=== PATIENT | female | born 2005 | race African-American/Black ===

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

== ENCOUNTER 2024-08-05 14:47 | Emergency (ER) | payer OTHER, SELFPAY ==
--- OUTSIDE RECORDS SUMMARY | 2024-08-05 14:50 | XMS REPORT | Continuity of Care Document ---
Author Name Unknown Address [address] [facility] [address] [place] [address] [facility] Address [address] [facility] [address] [place] [address] Care Team Providers Care Inspector Precision Name Role Phone Pcp, Patient Does Not Have A Primary Care Physic puneet CHRISTINE CASTILLO Attending Clinician Unavailable Christine Solis Attending Clinician [phone] Daisy Melo Attending Clinician + DAISY MO Attending Clinician Unavail able GWENDOLYN CHAU Attending Clinician Unavailable VEE MADDOX Attending Clinician Unavailable Pob, Adc Lab Main Attending Clinician UnavailVee Amaya MD Attending Clinician [phone] Doctor Unassigned, [place] Attending Clinician Maddie Lee PA-C Attending Clinician [phone] MADDIE DURAN Attending Clinician Unavailable MARY CLEMENTS Attending Clinician Unavailable VEE MADDOX Admitting Clinician Unavailable Payers Payer Name Policy Type Policy Number Effective Date Expirati on Date Source [facility] [id number] 2024 00:00:00 [place] [employer] [id number] 2023 00:00:00 MEDICAID [place] [id number] 2020 00:00:00 MEDICAID PENDING PENDING 2020 00:00:00 BCBS [facility] - OUT OF STATE [id number] 2018 00:00:00 Problems Condition Name Condition Details Condition Category Status Onset Date Resolution Date Last Treatment Date Treating Clinician Comments Source Need for HPV vaccinatio n Need for HPV vaccinatio n Disease Active 04-06 00:00: 00 [facility] Nexplanon in place Nexplanon in place Disease Active 07-05 00:00: 00 [facility] History of anxiety History of anxiety Disease Active 2 00:00: 00 [facility] History of depression History of depression Disease Active 2019-11 00:00: 00 Overview: Formattin g of this note might be different from the original. Reports on lexapro, dx in 11/2019, stopped taking meds in 12/2019, reports she did not like the way it made her feel [facility] Liveborn , of [place] , born in hospital by vaginal delivery Liveborn infant, of [place] , born in hospital by vaginal delivery Disease Resolve d 7-28 00:00: 00 2021-06-29 00:00:00 2021-06-29 15:59:13 [facility] Anemia, antepartum , third trimester Anemia, antepartum , third trimester Disease Resolve d 7- 00:00: 00 2021-06-29 00:00:00 2021-06-29 15:59:13 [facility] LENNY (acute kidney injury) LENNY (acute kidney injury) Disease Resolve d 7-27 00:00: 00 2021-06-29 00:00:00 2021-06-29 15:59:13 [facility] 37 weeks gestation of 37 weeks gestation of Disease Resolve d 0 7-25 00:00: 00 2021-06-29 00:00:00 2021-06-29 15:59:13 [facility] Severe pre-eclamp dayday in third trimester Severe pre-eclamp dayday in third trimester Disease Resolve d 0 7-25 00:00: 00 2021-06-29 00:00:00 2021-06-29 16:40:38 [facility] Positive GBS test Positive GBS test Disease Resolve d 2-09 00:00: 00 2021-06-29 00:00:00 2021-06-29 15:59:13 [facility] Supervisio n of high-risk of young primigravi da Supervisio n of high-risk of young primigravi da Disease Resolve d 2019-11 2- 00:00: 00 2021-06-29 00:00:00 2021-06-29 16:40:41 [facility] Acetaminop hen overdose, intentiona l self-harm, initial encounter Acetaminop hen overdose, intentiona l self-harm, initial encounter Disease Resolve d 1-10 00:00: 00 2021-06-29 00:00:00 2021-06-29 16:40:46 [facility] UTI in UTI in Disease Resolve d 2019-11 2 00:00: 00 2020-12-13 00:00:00 2020-12-13 09:49:13 [facility] Allergies, Adverse Reactions, Alerts Allergy Name Allergy Type Status Severity Reaction(s) Onset Date Inactive Date Treating Clinician Comments Source NO KNOWN ALLERGIE S Drug Class Active [facility] Social History Social Habit Start Date Stop Date Quantity Comments Source [facility] Alcoholic beverage intake 2024-07-07 00:00:00 2024-07-07 00:00:00 Ex-drinker (finding) [facility] Tobacco use and exposure 2024-04-23 00:00:00 2024-04-23 00:00:00 Smokeless tobacco non-user [facility] History of Social function 2024-04-06 00:00:00 2024-04-06 00:00:00 [facility] Exposure to SARS-CoV-2 (event) 2022-02-11 00:00:00 2022-02-21 10:52:00 Not sure [facility] Alcohol intake 2022-02-21 00:00:00 2022-02-21 00:00:00 Current drinker of alcohol (finding) [facility] Alcohol Comment 2022-02-21 00:00:00 2022-02-21 00:00:00 occasionally [facility] History SDOH Alcohol Frequency 2020-10-25 00:00:00 2020-10-25 00:00:00 99 [facility] History SDOH Alcohol Std Drinks 2020-10-25 00:00:00 2020-10-25 00:00:00 99 [facility] History SDOH Alcohol Binge 2020-10-25 00:00:00 2020-10-25 00:00:00 99 [facility] History SDOH Financial 2019-11-13 00:00:00 2019-11-13 00:00:00 5 [facility] History SDOH Food Worry 2019-11-13 00:00:00 2019-11-13 00:00:00 1 [facility] History SDOH Food Scarcity 2019-11-13 00:00:00 2019-11-13 00:00:00 1 [facility] History SDOH Transport Med 2019-11-13 00:00:00 2019-11-13 00:00:00 2 [facility] History SDOH Transport Non-Med 2019-11-13 00:00:00 2019-11-13 00:00:00 2 [facility] Sex assigned at 2004 00:00:00 2004 00:00:00 [facility] Smoking Status Start Date Stop Date Source Never smoked tobacco [facility] Medications Ordered Medication Name Filled Medication Name Start Date Stop Date Current Medication? Ordering Clinician Indication Dosage Frequency Signature (SIG) Comments Components Source etonogestre L (NEXPLANON) implant 68 mg 07-07 19:30: 00 07-07 19:26 :00 No [id number] 68mg 68 mg, Subdermal, ONCE NOW, 1 dose, On Sat07/07/24 at 1430, Routine, Use approved by: [facility] metroNIDAZO LE 500 mg tablet 04-27 00:00: 00 Yes [id number] 500mg Take 1 tablet by mouth in the morning and 1 tablet in the evening. [facility] metroNIDAZO LE 500 mg tablet 04-09 00:00: 00 Yes [id number] 500mg Take 1 tablet by mouth every 12 (twelve) hours. [facility] Nitrofurant oin&Nit. Macrocryst 100 mg capsule 02-21 12:48: 48 02-21 00:00 :00 No nitrofuran toin monohydrat e/macrocry stals 100 mg capsule [facility] ibuprofen 600 mg tablet 02-21 12:48: 45 02-21 00:00 :00 No ibuprofen 600 mg tablet [facility] hydroCHLORO thiazide 25 mg tablet 02-21 12:48: 39 02-21 00:00 :00 No hydrochlor othiazide 25 mg tablet [facility] ferrous sulfate 325 mg (65 mg iron) tablet 02-21 12:48: 33 02-21 00:00 :00 No FeroSul 325 mg (65 mg iron) tablet [facility] docusate calcium 240 mg capsule 02-21 12:48: 27 02-21 00:00 :00 No docusate calcium 240 mg capsule [facility] acyclovir (ZOVIRAX) 400 mg tablet 02-21 12:48: 20 02-21 00:00 :00 No Zovirax 400 mg tablet Take 1 tablet 3 times a day by oral route for 5 days. [facility] ampicillin 500 mg capsule 02-21 12:48: 14 02-21 00:00 :00 No ampicillin 500 mg capsule [facility] cetirizine 10 mg tablet 02-21 11:16: 40 Yes cetirizine 10 mg tablet Take 1 tablet every day by oral route for 30 days. [facility] chlorhexidi ne 0.12 % mouthwash 02-21 11:16: 40 Yes chlorhexid ine gluconate 0.12 % mouthwash [facility] escitalopra m oxalate 20 mg tablet 02-21 11:16: 40 Yes escitalopr am 20 mg tablet [facility] Immunizations Ordered Immunization Name Filled Immunization Name Date Status Comments Source HPV9 2017-05-23 00:00:00 Completed [facility] Meningococcal Polysaccharide (groups A, C, Y and W-135) conjugate vaccine (MCV4P) 2017-05-23 00:00:00 Completed [facility] TDAP 2017-05-23 00:00:00 Completed [facility] DTAP 2009-07-12 00:00:00 Completed [facility] MMR 2009-07-12 00:00:00 Completed [facility] Polio (IPV/OPV) 2009-07-12 00:00:00 Completed [facility] Dtap/ipv 2008-12-30 00:00:00 Completed [facility] MMR 2008-12-30 00:00:00 Completed [facility] Varicella (varivax)(chicken pox) 2008-12-30 00:00:00 Completed [facility] HEPATITIS A 2008-08-06 00:00:00 Completed [facility] Hep B, Adol or Pedi Dosage 2008-08-06 00:00:00 Completed [facility] Pneumococcal 7 Conjugate, PCV7 (Prevnar7) 2008-08-06 00:00:00 Completed [facility] DTAP 2006-07-11 00:00:00 Completed [facility] HEPATITIS A 2006-07-11 00:00:00 Completed [facility] Pneumococcal 7 Conjugate, PCV7 (Prevnar7) 2006-07-11 00:00:00 Completed [facility] Heamophilus Influenza B 2005-09-17 00:00:00 Completed [facility] MMR 2005-09-17 00:00:00 Completed [facility] Varicella (varivax)(chicken pox) 2005-09-17 00:00:00 Completed [facility] DTAP 2005-06-04 00:00:00 Completed [facility] Heamophilus Influenza B 2005-06-04 00:00:00 Completed [facility] Pneumococcal 7 Conjugate, PCV7 (Prevnar7) 2005-06-04 00:00:00 Completed [facility] Polio (IPV/OPV) 2005-06-04 00:00:00 Completed [facility] Hep B, Dtap, Polio 2005-02-13 00:00:00 Completed [facility] Heamophilus Influenza B 2005-02-13 00:00:00 Completed [facility] Hep B, Dtap, Polio 2004 00:00:00 Completed [facility] Heamophilus Influenza B 2004 00:00:00 Completed [facility] Pneumococcal 7 Conjugate, PCV7 (Prevnar7) 2004 00:00:00 Completed [facility] Hep B, Adol or Pedi Dosage 2004 00:00:00 Completed [facility] Dtap/ipv Unknown Completed [facility] Meningococcal Polysaccharide (groups A, C, Y and W-135) conjugate vaccine (MCV4P) Unknown [facility] TD[facility] Unknown Completed [facility] DTAP Unknown Completed [facility] Hep B, Dtap, Polio Unknown Completed [facility] HEPATITIS A Unknown Completed [facility] Hep B, Adol or Pedi Dosage Unknown Completed [facility] Heamophilus Influenza B Unknown Completed [facility] HPV9 Unknown Completed [facility] MMR Unknown Completed [facility] Pneumococcal 7 Conjugate, PCV7 (Prevnar7) Unknown Completed [facility] Polio (IPV/OPV) Unknown Com[facility] Varicella (varivax)(chicken pox) Unknown Completed [facility] DTAP Unknown Completed [facility] Hep B, Dtap, Polio Unknown Completed [facility] Dtap/ipv Unknown Completed [facility] HEPATITIS A Unknown Completed [facility] Hep B, Adol or Pedi Dosage Unknown Completed [facility] Heamophilus Influenza B Unknown Completed [facility] HPV9 Unknown Completed [facility] Meningococcal Polysaccharide (groups A, C, Y and W-135) conjugate vaccine (MCV4P) Unknown Completed [facility] MMR Unknown Completed [facility] Pneumococcal 7 Conjugate, PCV7 (Prevnar7) Unknown Completed [facility] Polio (IPV/OPV) Unknown Completed [facility] TDAP Unknown Completed [facility] Varicella (varivax)(chicken pox) Unknown Completed [facility] DTAP Unknown Completed [facility] Hep B, Dtap, Polio Unknown [facility] D[facility] Unknown Completed [facility] HEPATITIS A Unknown Completed [facility] Hep B, Adol or Pedi Dosage Unknown Completed [facility] Heamophilus Influenza B Unknown Completed [facility] HPV9 Unknown Completed [facility] Meningococcal Polysaccharide (groups A, C, Y and W-135) conjugate vaccine (MCV4P) Unknown Completed [facility] MMR Unknown Completed [facility] Pneumococcal 7 Conjugate, PCV7 (Prevnar7) Unknown Completed [facility] Polio (IPV/OPV) Unknown Completed [facility] TDAP Unknown Completed [facility] Varicella (varivax)(chicken pox) Unknown Completed [facility] DTAP Unknown Completed [facility] Hep B, Dtap, Polio Unknown [facility] Dtap/[facility]v Unknown Completed [facility] HEPATITIS A Unknown Completed [facility] Hep B, Adol or Pedi Dosage Unknown Completed [facility] Heamophilus Influenza B Unknown Completed [facility] HPV9 Unknown Completed [facility] Meningococcal Polysaccharide (groups A, C, Y and W-135) conjugate vaccine (MCV4P) Unknown Completed [facility] MMR Unknown Completed [facility] Pneumococcal 7 Conjugate, PCV7 (Prevnar7) Unknown Completed [facility] Polio (IPV/OPV) Unknown Completed [facility] TDAP Unknown Completed [facility] Varicella (varivax)(chicken pox) Unknown Completed [facility] DTAP Unknown Completed [facility] Hep B, Dtap, Polio Unknown [facility] Dtap/[facility]v Unknown Completed [facility] HEPATITIS A Unknown Completed [facility] Hep B, Adol or Pedi Dosage Unknown Completed [facility] Heamophilus Influenza B Unknown Completed [facility] HPV9 Unknown Completed [facility] Meningococcal Polysaccharide (groups A, C, Y and W-135) conjugate vaccine (MCV4P) Unknown Completed [facility] MMR Unknown Completed [facility] Pneumococcal 7 Conjugate, PCV7 (Prevnar7) Unknown Completed [facility] Polio (IPV/OPV) Unknown Completed [facility] TDAP Unknown Completed [facility] Varicella (varivax)(chicken pox) Unknown Completed [facility] Vital Signs Vital Name Observation Time Observation Value Comments S jessica Systolic blood pressure 2024-07-07 18:09:00 127 mm[Hg] [facility] Diastolic blood pressure 2024-07-07 18:09:00 82 mm[Hg] [facility] Heart rate 2024-07-07 18:09:00 97 /min [facility] Body temperature 2024-07-07 18:09:00 35.67 Leilani [facility] Respiratory rate 2024-07-07 18:09:00 16 /min [facility] Body height 2024-07-07 18:09:00 154.9 cm [facility] Body weight 2024-07-07 18:09:00 58.656 kg [facility] BMI 2024-07-07 18:09:00 24.43 kg/m2 [facility] Systolic blood pressure 2024-04-23 19:30:00 109 mm[Hg] [facility] Diastolic blood pressure 2024-04-23 19:30:00 75 mm[Hg] [facility] Heart rate 2024-04-23 19:30:00 94 /min [facility] Body temperature 2024-04-23 19:30:00 36.28 Leilani [facility] Respiratory rate 2024-04-23 19:30:00 18 /min [facility] Body height 2024-04-23 19:30:00 154.9 cm [facility] Body weight 2024-04-23 19:30:00 61.916 kg [facility] BMI 2024-04-23 19:30:00 25.79 kg/m2 [facility] Systolic blood pressure 2024-04-06 15:09:00 132 mm[Hg] [facility] Diastolic blood pressure 2024-04-06 15:09:00 87 mm[Hg] [facility] Heart rate 2024-04-06 15:05:00 79 /min [facility] Body temperature 2024-04-06 15:05:00 36.56 Leilani [facility] Respiratory rate 2024-04-06 15:05:00 17 /min [facility] Body height 2024-04-06 15:05:00 154.9 cm [facility] Body weight 2024-04-06 15:05:00 62.007 kg [facility] BMI 2024-04-06 15:05:00 25.83 kg/m2 [facility] Systolic blood pressure 2022-02-21 16:09:00 100 mm[Hg] [facility] Diastolic blood pressure 2022-02-21 16:09:00 62 mm[Hg] [facility] Heart rate 2022-02-21 16:09:00 82 /min [facility] Body temperature 2022-02-21 16:09:00 36.89 Leilani [facility] Respiratory rate 2022-02-21 16:09:00 18 /min [facility] Body height 2022-02-21 16:09:00 154.9 cm [facility] Body weight 2022-02-21 16:09:00 51.619 kg [facility] BMI 2022-02-21 16:09:00 21.50 kg/m2 [facility] Body mass index (BMI) [Percentile] Per age and sex 2022-02-21 16:09:00 55.21 % [facility] Procedures Procedure Date / Time Performed Performing [facility] n Source POCT TEST 2024-07-07 18:54:00 Christine Castillo [facility] GALV ONLY - VAGINAL PATHOGENS BY NUCLEIC ACID TESTING 2024-04-23 20:00:00 Daisy Mo [facility] GARDASIL 9 (HPV 9V) VACCINE 2024-04-06 15:24:13 Daisy Mo [facility] Encounters Start Date/Time End Date/Time Encounter Type Admission Type Attending [facility] Care Facility Care Department Encounter ID Source 2024-07-07 13:00:00 2024-07-07 14:05:06 Outpatient R CHRISTINE CASTILLO [facility] [id number] [facility] 2024-07-07 13:00:00 2024-07-07 14:05:06 Office Visit Christine Castillo [facility] SPECIAL[facility] [id number] [facility] 2024-04-27 00:00:00 2024-04-27 16:52:58 Telephone Daisy Mo [facility] SPECIALIST [facility] [id number] [facility] 2024-04-23 14:30:00 2024-04-23 15:06:14 Outpatient R DAISY MO [facility] [id number] [facility] 2024-04-23 14:30:00 2024-04-23 15:06:14 Office Visit Daisy Mo [facility] SPECIALIST [facility]ILD [facility] [id number] [facility] 2024-04-09 00:00:00 2024-04-09 10:36:37 Telephone Jonathan Christine [facility] [id number] [facility] 2024-04-06 10:15:00 2024-04-06 10:58:36 Outpatient R CHRISTINE CASTILLO [facility] [id number] [facility] 2024-04-06 10:15:00 2024-04-06 10:58:36 Office Visit Christine Castillo [facility] [id number] [facility] 2024-02-12 10:30:00 2024-02-12 10:30:00 Outpatient R GWENDOLYN CHAU [facility] [id number] [facility] 2023-12-18 10:30:00 2023-12-18 10:30:00 Outpatient R GWENDOLYN CHAU [facility] [id number] [facility] 2023-02-21 13:30:00 2023-02-21 13:30:00 Outpatient R VEE MADDOX [facility] [id number] [facility] 2022-02-21 12:30:00 2022-02-21 12:45:00 Chiller Tender Visit Pob, Adc Lab Main Vee Maddox [facility] [id number] [facility] 2022-02-21 10:30:00 2022-02-21 11:44:48 Outpatient R VEE MADDOX [facility] [id number] [facility] 2022-02-21 10:30:00 2022-02-21 11:44:48 Office Visit Vee Maddox [facility] [id number] [id number] [facility] 2022-02-21 10:30:00 2022-02-21 11:44:48 Outpatient R VEE MADDOX [facility] [id number] [facility] 2022-02-21 00:00:00 2022-02-21 00:00:00 Orders Only Doctor Unassigned, [place] [facility] [id number] [id number] [id number] [facility] 2022-01-03 15:00:00 2022-01-03 15:00:00 Outpatient R VEE MADDOX [facility] [id number] [facility] 2021-07-20 13:14:51 2021-07-20 14:02:31 Office [facility] [id number] 350.1.13.10 [id number] 134 [id number] [facility] 2021-07-20 13:00:00 2021-07-20 14:02:31 Outpatient R [facility] [id number] [facility] 2021-07-19 00:00:00 2021-07-19 00:00:00 [facility] [id number] 350.1.13.10 [id number] [id number] [facility] 2021-07-05 15:29:02 2021-07-05 16:33:27 Office Visit Vee Maddox [facility] [id number] 350.1.13.10 [id number] [id number] [facility] 2021-07-05 15:15:00 2021-07-05 16:33:27 Outpatient R VEE MADDOX [facility] [id number] [facility] 2021-07-05 00:00:00 2021-07-05 00:00:00 Orders Only Doctor Unassigned, [place] [facility] [id number] 350.1.13.10 4.2.7.2.686 [id number] [facility] 2021-06-29 15:45:00 2021-06-29 16:26:34 Outpatient R VEE MADDOX [facility] [id number] [facility] 2021-06-29 15:42:12 2021-06-29 16:26:34 Routine Visit Vee Maddox [facility] [id number] [id number] [id number] [id number] 134 [id number] [facility] 2021-06-05 14:30:00 2021-06-05 14:47:51 Outpatient R VEE MADDOX [facility] [id number] [facility] 2021-05-28 20:08:00 2021-05-31 19:35:00 Inpatient X VEE MADDOX [facility] [id number] [facility] 2021-05-29 14:15:00 2021-05-29 14:15:00 Outpatient VEE SUGGS [facility] [id number] [facility] 2021-05-22 15:30:00 2021-05-22 16:52:36 Outpatient MADDIE SERNA [facility] [id number] [facility] 2021-05-17 13:45:00 2021-05-17 13:45:00 Outpatient MADDIE SERNA [facility] [id number] [facility] 2021-05-08 14:15:00 2021-05-08 15:16:58 Outpatient VEE SUGGS [facility] [id number] [facility] 2021-04-24 15:00:00 2021-04-24 15:25:59 Outpatient MADDIE SERNA [facility] [id number] [facility] 2021-04-10 14:00:00 2021-04-10 14:00:00 Outpatient NITIN [facility] [id number] [facility] 2021-04-10 08:15:00 2021-04-10 09:57:24 Outpatient VEE SUGGS [facility] [id number] [facility] 2021-04-10 08:00:00 2021-04-10 08:00:00 Outpatient VEE SUGGS [facility] [id number] [facility] 2021-03-13 14:45:00 2021-03-13 15:31:51 Outpatient R MADDIE DURAN [facility] [id number] [facility] 2021-02-17 15:00:00 2021-02-17 15:41:30 Outpatient P MARY CLEMENTS [facility] [id number] [facility] 2021-02-09 16:15:00 2021-02-09 16:15:00 Outpatient R MADDIE DURAN [facility] [id number] [facility] 2021-02-09 13:30:00 2021-02-09 13:30:00 Outpatient R VEE MADDOX [facility] [id number] [facility] 2021-01-27 14:00:00 2021-01-27 14:00:00 Outpatient R [facility] [id number] [facility] 2021-01-10 09:30:00 2021-01-10 09:30:00 Outpatient R MADDIE DURAN [facility] [id number] [facility] 2020-12-20 14:00:00 2020-12-20 14:00:00 Outpatient R DAISY MO [facility] [id number] [facility] 2020-12-13 08:30:00 2020-12-13 09:39:17 Outpatient R EVE MADDOX [facility] [id number] [facility] 2020-12-06 11:15:00 2020-12-06 11:15:00 Outpatient P [facility] [id number] [facility] 2020-12-06 08:00:00 2020-12-06 08:00:00 Outpatient P [facility] [id number] [facility] 2020-11-22 15:15:00 2020-11-22 15:15:00 Outpatient R DAISY MO [facility] [id number] [facility] 2020-10-25 10:00:00 2020-10-25 10:00:00 Outpatient R DAISY MO [facility] [id number] [facility] 2020-02-18 00:00:00 2020-02-18 00:00:00 Orders Only Doctor Unassigned, [place] [facility] [id number] [id number] [id number] [id number] Results Test Description Test Time Test Comments Results Result Co mments Source [facility] Notes Date/Time Note Provider Source 2024-04-27 16:50:52 Pt called and notified she verbalized understanding Please notify the patient her labs are indicative of BV, meds have been sent to her pharmacy on file. Please have her complete the entire course as prescribed. AALIYAH Alarcon 04/27/2024 4:52 PM [facility] 2024-04-09 10:35:24 Called patient, notified positive for BV. Educated patient on antibiotics, daily probiotics, and BV prevention measures. Pt verbalized understanding. ADRIENNE Mcadams RN 04/09/2024 10:35 AM Adrienne Mcadams RN [facility] 2024-04-09 09:32:32 Attempted to call patient, no answer, left vm. Barbara Holley LVN [facility] 2024-04-09 08:42:25 Please make pt aware that she is positive for BV. Rx for metronidazole 500mg BID x 7 days sent to pharmacy. Advise to avoid scented soaps/detergents/pads/tampons . RTC in 2 weeks if symptoms persist or worsen. 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 Other testing is negative. T [facility]
[2024-08-05 15:39] LABS: SARS-CoV-2 Antigen CONTROL BLUE LINE VIS/BG OK; SARS-CoV-2 Antigen Rapid Res Negative (Negative)
--- NOTE | 2024-08-05 15:44 | EDPHYS ---
Physician Documentation [facility] Name: Nicol Perea Age: 18 yrs Sex: Female : 2005 Arrival Date: 08/05/2024 Time: 14:47 Bed 12 Private MD: ED Physician Nigel Matt HPI: 08/05 15:01 This 18 yrs old Black Female presents to ER via Unassigned with complaints of flu sb4 symptoms. 15:01 sore throat, fever, chills, malaise, and nausea since yesterday. took dayquil with some sb4 relief. denies any sick contacts. no chest pain, shortness of breath, cough. Historical: - Allergies: 15:02 No Known Allergies; ll1 - Home Meds: 15:02 None [Active]; ll1 - PMHx: 15:02 None; ll1 - PSHx: 15:02 None; ll1 - Immunization history:: Adult Immunizations up to date. - Infectious Disease History:: Denies. - Social history:: Smoking status: Reported history of juuling and/or vaping. ROS: 15:01 Respiratory: Negative for shortness of breath, cough, wheezing, and pleuritic chest sb4 pain, 15:01 Constitutional: Positive for chills, fever, malaise, 15:01 ENT: Positive for sore throat, 15:01 All other systems are negative, Exam: 15:01 Constitutional: This is a well developed, well nourished patient who is awake, alert, sb4 and in no acute distress. Head/Face: Normocephalic, atraumatic. Eyes: Extra-ocular motions intact. Periorbital areas with no swelling, redness, or edema. Cardiovascular: Regular rate and rhythm with a normal S1 and S2. Respiratory: Lungs have equal breath sounds bilaterally, clear to auscultation and percussion. No rales, rhonchi or wheezes noted. No increased work of breathing, no retractions or nasal flaring. Abdomen/GI: Soft, non-tender, no distension. Skin: Warm, dry with normal turgor. Normal color with no rashes, no lesions, and no evidence of cellulitis. 15:01 ENT: Posterior pharynx: Tonsils: are normal in appearance, cobblestoning, Vital Signs: 15:02 BP 119 / 87; Pulse 92; Resp 17; Temp 98.2; Pulse Ox 100% ; Weight 57.15 kg; Height 5 ll1 ft. 1 in. ; Pain 5/10; 15:50 BP 117 / 81; Pulse 79; Resp 17; Temp 98.2(O); Pulse Ox 99% ; rs5 15:02 Body Mass Index 23.81 (57.15 kg, 154.94 cm) - Percentile 70.6 % ll1 15:02 Pain Scale: Adult ll1 MDM: 14:51 Patient medically screened. sb4 15:42 Data reviewed: vital signs, nurses notes, lab test result(s), and as a result, I will sb4 discharge patient. Counseling: I had a detailed discussion with the patient and/or guardian regarding the historical points, exam findings, and any diagnostic results supporting the discharge/admit diagnosis, lab results, to return to the emergency department if symptoms worsen or persist or if there are any questions or concerns that arise at home. 08/05 14:59 Order name: Strep sb4 08/05 14:59 Order name: SARS RAPID; Complete Time: 15:40 sb4 08/05 14:59 Order name: Flu; Complete Time: 15:40 sb4 08/05 15:43 Order name: Throat Culture EDMS Administered Medications: No medications were administered Disposition Summary: 08/05/24 15:43 Discharge Ordered Notes: Location: Home sb4 Problem: new sb4 Symptoms: are unchanged sb4 Condition: Stable sb4 Diagnosis - Viral infection, unspecified sb4 Followup: sb4 - With: Private Physician - When: As needed - Reason: Recheck today's complaints, Re-evaluation by your physician Discharge Instructions: - Discharge Summary Sheet sb4 - Viral Illness, Adult sb4 Forms: - Work release form sb4 - Patient Portal Instructions sb4 - Leadership Thank You Letter sb4 Signatures: Dispatcher [employer] Kenan Ibarra, RN RN ll1 Juany Beaulieu PA-C PA-C sb4 Javy Ortiz RN RN rs5
--- NOTE | 2024-08-05 15:44 | ER ---
Nurse's Notes [facility] Name: Nicol Perea Age: 18 yrs Sex: Female : 2005 Arrival Date: 08/05/2024 Time: 14:47 Bed 12 Private MD: Diagnosis: Viral infection, unspecified Presentation: 08/05 15:02 Chief complaint: Patient states: Sore throat, chills, RUCKER, nausea, fatigue for 3 days. ll1 Coronavirus screen: Client denies travel out of the [place] in the last 14 days. chills, diarrhea, fatigue, headache, nausea, Client presents with at least one sign or symptom that may indicate coronavirus-19. Standard/surgical mask placed on the client. Ebola Screen: Patient denies travel to an Ebola-affected area in the 21 days before illness onset. Initial Sepsis Screen: Does the patient meet any 2 criteria? No. Patient's initial sepsis screen is negative. Does the patient have a suspected source of infection? No. Patient's initial sepsis screen is negative. Risk Assessment: Do you want to hurt yourself or someone else? Patient reports no desire to harm self or others. Onset of symptoms was August 03, 2024. 15:02 Method Of Arrival: Ambulatory ll1 15:02 Acuity: LILIANE 4 ll1 Triage Assessment: 14:51 General: Appears in no apparent distress. uncomfortable, Behavior is calm, cooperative. rs5 Historical: - Allergies: 15:02 No Known Allergies; ll1 - Home Meds: 15:02 None [Active]; ll1 - PMHx: 15:02 None; ll1 - PSHx: 15:02 None; ll1 - Immunization history:: Adult Immunizations up to date. - Infectious Disease History:: Denies. - Social history:: Smoking status: Reported history of juuling and/or vaping. Screenin:03 [facility] ED Fall Risk Assessment (Adult) History of falling in the last 3 months, rs5 including since admission No falls in past 3 months (0 pts) Confusion or Disorientation No (0 pts) Intoxicated or Sedated No (0 pts) Impaired Gait No (0 pts) Mobility Assist Device Used No (0 pt) Altered Elimination No (0 pt) Score/Fall Risk Level 0 - 2 = Low Risk Oriented to surroundings, Maintained a safe environment. Abuse screen: Denies threats or abuse. Nutritional screening: No deficits noted. Tuberculosis screening: No symptoms or risk factors identified. Assessment: 14:51 General: Appears in no apparent distress. uncomfortable, Behavior is calm, cooperative. rs5 Pain: Complains of pain in head Pain currently is 4 out of 10 on a pain scale. Quality of pain is described as aching, Is continuous. Neuro: Level of Consciousness is awake, alert, obeys commands, Oriented to person, place, time, situation. Cardiovascular: Patient's skin is warm and dry. Respiratory: Reports cough that is Airway is patent Respiratory effort is even, unlabored, Respiratory pattern is regular, symmetrical, Breath sounds are clear bilaterally. GI: Abdomen is round non-distended, Abd is soft and non tender X 4 quads. : No signs and/or symptoms were reported regarding the genitourinary system. EENT: Throat slight redness noted to back of throat. Reports sore throat. 14:51 Derm: Skin is intact, Skin is pink, warm \T\ dry. Musculoskeletal: Range of motion: rs5 intact in all extremities, Reports generalized weakness. 15:50 Reassessment: Patient and/or family updated on plan of care and expected duration. Pain rs5 level reassessed. Patient is alert, oriented x 3, equal unlabored respirations, skin warm/dry/pink. Vital Signs: 15:02 BP 119 / 87; Pulse 92; Resp 17; Temp 98.2; Pulse Ox 100% ; Weight 57.15 kg; Height 5 ll1 ft. 1 in. ; Pain 5/10; 15:50 BP 117 / 81; Pulse 79; Resp 17; Temp 98.2(O); Pulse Ox 99% ; rs5 15:02 Body Mass Index 23.81 (57.15 kg, 154.94 cm) - Percentile 70.6 % ll1 15:02 Pain Scale: Adult ll1 ED Course: 14:50 Patient arrived in ED. ra3 14:50 Juany Beaulieu PA-C is PHCP. sb4 14:50 Nigel Matt MD is Attending Physician. sb4 14:56 Arm band placed on Patient placed in an exam room, on a stretcher. ll1 15:03 Triage completed. ll1 15:03 Patient has correct armband on for positive identification. Placed in gown. Bed in low rs5 position. Call light in reach. Side rails up X2. 15:03 No provider procedures requiring assistance completed. rs5 15:09 Flu Sent. me1 15:09 SARS RAPID Sent. me1 15:09 Strep Sent. me1 15:09 COVID swab sent to lab. Flu and/or RSV swab sent to lab. Strep swab sent to lab. me1 15:17 Javy Ortiz, RN is Primary Nurse. rs5 15:50 Provided Education on: discharge instructions . rs5 15:53 IV discontinued, intact, bleeding controlled, No redness/swelling at site. Pressure rs5 dressing applied. Administered Medications: No medications were administered Medication: 14:52 VIS not applicable for this client. rs5 Outcome: 15:43 Discharge ordered by MD. sb4 15:53 Discharged to home ambulatory, rs5 15:53 Condition: stable rs5 15:53 Discharge instructions given to patient, family, Instructed on discharge instructions, follow up and referral plans. Demonstrated understanding of instructions, follow-up care, 15:54 Patient left the ED. rs5 Signatures: Kenan Kim, RN RN ll1 Juany Beaulieu PALeslieC PA-C sb4 Javy Ortiz, RN RN rs5 Sandy Harris RN RN pr1 [place] ra3 Corrections: (The following items were deleted from the chart) 16:00 15:59 Reassessment: Patient and/or family updated on plan of care and expected rs5 duration. Pain level reassessed. Patient is alert, oriented x 3, equal unlabored respirations, skin warm/dry/pink. rs5 16:01 14:50 Provided Education on: discharge instructions . rs5 rs5
[2024-08-06 06:03] VITALS: BP 119/87; TEMP 98.2; O2SAT 100
== END 2024-08-05 15:54 | disposition home or self-care (01) ==
LOC: ER 14:47
DX: B34.9 Viral infection, unspecified (principal); F17.290 Nicotine dependence, other tobacco product, uncomplicated; Z11.52 Encounter for screening for COVID-19
CPT/HCPCS: 36415; 87070; 87081; 87804; 87811; 99283

== ENCOUNTER 2025-01-26 16:41 | Emergency (ER) | payer SELFPAY ==
--- OUTSIDE RECORDS SUMMARY | 2025-01-26 16:45 | XMS REPORT | Continuity of Care Document ---
Author Name Unknown Address [address] [place] [address] [facility] Address [address] [place] [address] Care Team Providers Care Tufter Name Role Phone Pcp, Patient Does Not Have A Primary Care Physic puneet CHRISTINE CASTILLO Attending Clinician Unavailable Christine Solis Attending Clinician [phone] Daisy Melo Attending Clinician + DAISY MO Attending Clinician Unavail able GWENDOLYN CHAU Attending Clinician Unavailable VEE MADDOX Attending Clinician Unavailable Pob, Adc Lab Main Attending Clinician UnavailVee Amaya MD Attending Clinician [phone] Doctor Unassigned, Mcgregor Attending Clinician Maddie Lee PA-C Attending Clinician [phone] MADDIE DURAN Attending Clinician Unavailable MARY CLEMENTS Attending Clinician Unavailable VEE MADDOX Admitting Clinician Unavailable Payers Payer Name Policy Type Policy Number Effective Date Expirati on Date Source [facility] [id number] 2024 00:00:00 [place] [employer] [id number] 2023 00:00:00 [place] [id number] 2020 00:00:00 MEDICAID PENDING PENDING 2020 00:00:00 BCBS [facility] OUT OF STATE [id number] 2018 00:00:00 Problems Condition Name Condition Details Condition Category Status Onset Date Resolution Date Last Treatment Date Treating Clinician Comments Source Need for HPV vaccinatio n Need for HPV vaccinatio n Disease Active 6 00:00: 00 [facility] Nexplanon in place Nexplanon in place Disease Active 07-05 00:00: 00 [facility] History of anxiety History of anxiety Disease Active 2 00:00: 00 [facility] History of depression History of depression Disease Active 2019-11 00:00: 00 Overview: Formattin g of this note might be different from the original. Reports on lexapro, dx in 11/2019, stopped taking meds in 12/2019, reports she did not like the way it made her feel [facility] Liveborn infant, of c[place] , born in hospital by vaginal delivery Liveborn infant, of [place] , born in hospital by vaginal delivery Disease Resolve d 7-28 00:00: 00 2021-06-29 00:00:00 2021-06-29 15:59:13 [facility] Anemia, antepartum , third trimester Anemia, antepartum , third trimester Disease Resolve d 7-27 00:00: 00 2021-06-29 00:00:00 2021-06-29 15:59:13 [facility] LENNY (acute kidney injury) LENNY (acute kidney injury) Disease Resolve d 0 7-27 00:00: 00 2021-06-29 00:00:00 2021-06-29 15:59:13 [facility] 37 weeks gestation of 37 weeks gestation of Disease Resolve d 2020-0 7-25 00:00: 00 2021-06-29 00:00:00 2021-06-29 15:59:13 [facility] Severe pre-eclamp dayday in third trimester Severe pre-eclamp dayday in third trimester Disease Resolve d 2020-0 7-25 00:00: 00 2021-06-29 00:00:00 2021-06-29 16:40:38 [facility] Positive GBS test Positive GBS test Disease Resolve d 2-09 00:00: 00 2021-06-29 00:00:00 2021-06-29 15:59:13 [facility] Supervisio n of high-risk of young primigravi da Supervisio n of high-risk of young primigravi da Disease Resolve d 2019-11 2- 00:00: 00 2021-06-29 00:00:00 2021-06-29 16:40:41 [facility] Acetaminop hen overdose, intentiona l self-harm, initial encounter Acetaminop hen overdose, intentiona l self-harm, initial encounter Disease Resolve d 1-10 00:00: 00 2021-06-29 00:00:00 2021-06-29 16:40:46 [facility] UTI in UTI in Disease Resolve d 2019-11 00:00: 00 2020-12-13 00:00:00 2020-12-13 09:49:13 [facility] Allergies, Adverse Reactions, Alerts Allergy Name Allergy Type Status Severity Reaction(s) Onset Date Inactive Date Treating Clinician Comments Source NO KNOWN ALLERGIE S Drug Class Active [facility] Social History Social Habit Start Date Stop Date Quantity Comments Source [facility] beverage intake 2024-07-07 00:00:00 2024-07-07 00:00:00 Ex-drinker (finding) [facility] Tobacco use and exposure 2024-04-23 00:00:00 2024-04-23 00:00:00 Smokeless tobacco non-user [facility] History of Social function 2024-04-06 00:00:00 2024-04-06 00:00:00 [facility] Exposure to SARS-CoV-2 (event) 2022-02-11 00:00:00 2022-02-21 10:52:00 Not sure [facility] Alcohol intake 2022-02-21 00:00:00 2022-02-21 00:00:00 Current drinker of alcohol (finding) [facility] Alcohol Comment 2022-02-21 00:00:00 2022-02-21 00:00:00 occasionally [facility] History SDOH Alcohol Frequency 2020-10-25 00:00:00 2020-10-25 00:00:00 99 [facility] History SDOH Alcohol Std Drinks 2020-10-25 00:00:00 2020-10-25 00:00:00 99 [facility] History SDOH Alcohol Binge 2020-10-25 00:00:00 2020-10-25 00:00:00 99 [facility] History SDOH Financial 2019-11-13 00:00:00 2019-11-13 00:00:00 5 [facility] History SDOH Food Worry 2019-11-13 00:00:00 2019-11-13 00:00:00 1 [facility] History SDOH Food Scarcity 2019-11-13 00:00:00 2019-11-13 00:00:00 1 [facility] History SDOH Transport Med 2019-11-13 00:00:00 2019-11-13 00:00:00 2 [facility] History SDOH Transport Non-Med 2019-11-13 00:00:00 2019-11-13 00:00:00 2 [facility] Sex assigned at 2004 00:00:00 2004 00:00:00 [facility] Smoking Status Start Date Stop Date Source Never smoked tobacco [facility] Medications Ordered Medication Name Filled Medication Name Start Date Stop Date Current Medication? Ordering Clinician Indication Dosage Frequency Signature (SIG) Comments Components Source etonogestre L (NEXPLANON) implant 68 mg 07-07 19:30: 00 07-07 19:26 :00 No [id number] 68mg 68 mg, Subdermal, ONCE NOW, 1 dose, On Sat07/07/24 at 1430, Routine, Use approved by: DETECTIVE PRECINCT [facility] metroNIDAZO LE 500 mg tablet 04-27 00:00: 00 Yes [id number] 500mg Take 1 tablet by mouth in the morning and 1 tablet in the evening. [facility] metroNIDAZO LE 500 mg tablet 04-09 00:00: 00 Yes [id number] 500mg Take 1 tablet by mouth every 12 (twelve) hours. [facility] Nitrofurant oin&Nit. Macrocryst 100 mg capsule 02-21 12:48: 48 02-21 00:00 :00 No nitrofuran toin monohydrat e/macrocry stals 100 mg capsule [facility] ibuprofen 600 mg tablet 02-21 12:48: 45 02-21 00:00 :00 No ibuprofen 600 mg tablet [facility] hydroCHLORO thiazide 25 mg tablet 02-21 12:48: 39 02-21 00:00 :00 No hydrochlor othiazide 25 mg tablet [facility] ferrous sulfate 325 mg (65 mg iron) tablet 02-21 12:48: 33 02-21 00:00 :00 No FeroSul 325 mg (65 mg iron) tablet [facility] docusate calcium 240 mg capsule 02-21 12:48: 27 02-21 00:00 :00 No docusate calcium 240 mg capsule [facility] acyclovir (ZOVIRAX) 400 mg tablet 02-21 12:48: 20 02-21 00:00 :00 No Zovirax 400 mg tablet Take 1 tablet 3 times a day by oral route for 5 days. [facility] ampicillin 500 mg capsule 02-21 12:48: 14 02-21 00:00 :00 No ampicillin 500 mg capsule [facility] cetirizine 10 mg tablet 02-21 11:16: 40 Yes cetirizine 10 mg tablet Take 1 tablet every day by oral route for 30 days. [facility] chlorhexidi ne 0.12 % mouthwash 02-21 11:16: 40 Yes chlorhexid ine gluconate 0.12 % mouthwash [facility] escitalopra m oxalate 20 mg tablet 02-21 11:16: 40 Yes escitalopr am 20 mg tablet [facility] Immunizations Ordered Immunization Name Filled Immunization Name Date Status Comments Source HPV9 2017-05-23 00:00:00 Completed [facility] Meningococcal Polysaccharide (groups A, C, Y and W-135) conjugate vaccine (MCV4P) 2017-05-23 00:00:00 Completed [facility] TDAP 2017-05-23 00:00:00 Completed [facility] DTAP 2009-07-12 00:00:00 Completed [facility] MMR 2009-07-12 00:00:00 Completed [facility] Polio (IPV/OPV) 2009-07-12 00:00:00 Completed [facility] Dtap/ipv 2008-12-30 00:00:00 Completed [facility] MMR 2008-12-30 00:00:00 Completed [facility] Varicella (varivax)(chicken pox) 2008-12-30 00:00:00 Completed [facility] HEPATITIS A 2008-08-06 00:00:00 Completed [facility] Hep B, Adol or Pedi Dosage 2008-08-06 00:00:00 Completed [facility] Pneumococcal 7 Conjugate, PCV7 (Prevnar7) 2008-08-06 00:00:00 Completed [facility] DTAP 2006-07-11 00:00:00 Completed [facility] HEPATITIS A 2006-07-11 00:00:00 Completed [facility] Pneumococcal 7 Conjugate, PCV7 (Prevnar7) 2006-07-11 00:00:00 Completed [facility] Heamophilus Influenza B 2005-09-17 00:00:00 Completed [facility] MMR 2005-09-17 00:00:00 Completed [facility] Varicella (varivax)(chicken pox) 2005-09-17 00:00:00 Completed [facility] DTAP 2005-06-04 00:00:00 Completed [facility] Heamophilus Influenza B 2005-06-04 00:00:00 Completed [facility] Pneumococcal 7 Conjugate, PCV7 (Prevnar7) 2005-06-04 00:00:00 Completed [facility] Polio (IPV/OPV) 2005-06-04 00:00:00 Completed [facility] Hep B, Dtap, Polio 2005-02-13 00:00:00 Completed [facility] Heamophilus Influenza B 2005-02-13 00:00:00 Completed [facility] Hep B, Dtap, Polio 2004 00:00:00 Completed [facility] Heamophilus Influenza B 2004 00:00:00 Completed [facility] Pneumococcal 7 Conjugate, PCV7 (Prevnar7) 2004 00:00:00 Completed [facility] Hep B, Adol or Pedi Dosage 2004 00:00:00 Completed [facility] Dtap/ipv Unknown Completed [facility] Meningococcal Polysaccharide (groups A, C, Y and W-135) conjugate vaccine (MCV4P) Unknown Completed [facility] TDAP Unknown Completed [facility] DTAP Unknown Completed [facility] Hep B, Dtap, Polio Unknown Completed [facility] HEPATITIS A Unknown Completed [facility] Hep B, Adol or Pedi Dosage Unknown Completed [facility] Heamophilus Influenza B Unknown Completed [facility] HPV9 Unknown Completed [facility] MMR Unknown Completed [facility] Pneumococcal 7 Conjugate, PCV7 (Prevnar7) Unknown Completed [facility] Polio (IPV/OPV) Unknown Completed [facility] Varicella (varivax)(chicken pox) Unknown Completed [facility] DTAP Unknown Completed [facility] Hep B, Dtap, Polio Unknown Completed [facility] Dtap/ipv Unknown Completed [facility] HEPATITIS A Unknown Completed [facility] Hep B, Adol or Pedi Dosage Unknown Completed [facility] Heamophilus Influenza B Unknown Completed [facility] HPV9 Unknown Completed [facility] Meningococcal Polysaccharide (groups A, C, Y and W-135) conjugate vaccine (MCV4P) Unknown Completed [facility] MMR Unknown Completed [facility] Pneumococcal 7 Conjugate, PCV7 (Prevnar7) Unknown Completed [facility] Polio (IPV/OPV) Unknown Completed [facility] TDAP Unknown Completed [facility] Varicella (varivax)(chicken pox) Unknown Completed [facility] DTAP Unknown Completed [facility] Hep B, Dtap, Polio Unknown [facility] Dtap[facility] Unknown Completed [facility] HEPATITIS A Unknown Completed [facility] Hep B, Adol or Pedi Dosage Unknown Completed [facility] Heamophilus Influenza B Unknown Completed [facility] HPV9 Unknown Completed [facility] Meningococcal Polysaccharide (groups A, C, Y and W-135) conjugate vaccine (MCV4P) Unknown Completed [facility] MMR Unknown Completed [facility] Pneumococcal 7 Conjugate, PCV7 (Prevnar7) Unknown Completed [facility] Polio (IPV/OPV) Unknown Completed [facility] TDAP Unknown Completed [facility] Varicella (varivax)(chicken pox) Unknown Completed [facility] DTAP Unknown Completed [facility] Hep B, Dtap, Polio Unknown [facility] Dtap/[facility]v Unknown Completed [facility] HEPATITIS A Unknown [facility] Hep B, Adol or Pedi Dosage Unknown Completed [facility] Heamophilus Influenza B Unknown Completed [facility] HPV9 Unknown Completed [facility] Meningococcal Polysaccharide (groups A, C, Y and W-135) conjugate vaccine (MCV4P) Unknown Completed [facility] MMR Unknown Completed [facility] Pneumococcal 7 Conjugate, PCV7 (Prevnar7) Unknown Completed [facility] Polio (IPV/OPV) Unknown Completed [facility] TDAP Unknown Completed [facility] Varicella (varivax)(chicken pox) Unknown Completed [facility] DTAP Unknown Completed [facility] Hep B, Dtap, Polio Unknown [facility] Dtap/ipv Unknown Completed [facility] HEPATITIS A Unknown Completed [facility] Hep B, Adol or Pedi Dosage Unknown Completed [facility] Heamophilus Influenza B Unknown Completed [facility] HPV9 Unknown Completed [facility] Meningococcal Polysaccharide (groups A, C, Y and W-135) conjugate vaccine (MCV4P) Unknown Completed [facility] MMR Unknown Completed [facility] Pneumococcal 7 Conjugate, PCV7 (Prevnar7) Unknown Completed [facility] Polio (IPV/OPV) Unknown Completed [facility] TDAP Unknown Completed [facility] Varicella (varivax)(chicken pox) Unknown Completed [facility] Vital Signs Vital Name Observation Time Observation Value Comments S jessica Systolic blood pressure 2024-07-07 18:09:00 127 mm[Hg] [facility] Diastolic blood pressure 2024-07-07 18:09:00 82 mm[Hg] [facility] Heart rate 2024-07-07 18:09:00 97 /min [facility] Body temperature 2024-07-07 18:09:00 35.67 Leilani [facility] Respiratory rate 2024-07-07 18:09:00 16 /min [facility] Body height 2024-07-07 18:09:00 154.9 cm [facility] Body weight 2024-07-07 18:09:00 58.656 kg [facility] BMI 2024-07-07 18:09:00 24.43 kg/m2 [facility] Systolic blood pressure 2024-04-23 19:30:00 109 mm[Hg] [facility] Diastolic blood pressure 2024-04-23 19:30:00 75 mm[Hg] [facility] Heart rate 2024-04-23 19:30:00 94 /min [facility] Body temperature 2024-04-23 19:30:00 36.28 Leilani [facility] Respiratory rate 2024-04-23 19:30:00 18 /min [facility] Body height 2024-04-23 19:30:00 154.9 cm [facility] Body weight 2024-04-23 19:30:00 61.916 kg [facility] BMI 2024-04-23 19:30:00 25.79 kg/m2 [facility] Systolic blood pressure 2024-04-06 15:09:00 132 mm[Hg] [facility] Diastolic blood pressure 2024-04-06 15:09:00 87 mm[Hg] [facility] Heart rate 2024-04-06 15:05:00 79 /min [facility] Body temperature 2024-04-06 15:05:00 36.56 Leilani [facility] Respiratory rate 2024-04-06 15:05:00 17 /min [facility] Body height 2024-04-06 15:05:00 154.9 cm [facility] Body weight 2024-04-06 15:05:00 62.007 kg [facility] BMI 2024-04-06 15:05:00 25.83 kg/m2 [facility] Systolic blood pressure 2022-02-21 16:09:00 100 mm[Hg] [facility] Diastolic blood pressure 2022-02-21 16:09:00 62 mm[Hg] [facility] Heart rate 2022-02-21 16:09:00 82 [facility] Body temperature 2022-02-21 16:09:00 36.89 Leilani [facility] Respiratory rate 2022-02-21 16:09:00 18 /min [facility] Body height 2022-02-21 16:09:00 154.9 cm [facility] Body weight 2022-02-21 16:09:00 51.619 kg [facility] BMI 2022-02-21 16:09:00 21.50 kg/m2 [facility] Body mass index (BMI) [Percentile] Per age and sex 2022-02-21 16:09:00 55.21 % [facility] Procedures Procedure Date / Time Performed Performing Clinicia n Source POCT TEST 2024-07-07 18:54:00 Christine Castillo [facility] GALV ONLY - VAGINAL PATHOGENS BY NUCLEIC ACID TESTING 2024-04-23 20:00:00 Daisy Mo [facility] GARDASIL 9 (HPV 9V) VACCINE 2024-04-06 15:24:13 Daisy Mo [facility] Encounters Start Date/Time End Date/Time Encounter Type Admission Type Attending [facility] Care Facility Care Department Encounter ID Source 2024-07-07 13:00:00 2024-07-07 14:05:06 Outpatient R CHRISTINE CASTILLO [facility] [id number] [facility] 2024-07-07 13:00:00 2024-07-07 14:05:06 Office Visit Christine Castillo [facility] DETECTIVE [facility] & CHILD [facility] [id number] [facility] 2024-04-27 00:00:00 2024-04-27 16:52:58 Telephone Daisy Mo [facility] DETECTIVE [facility] & CHILD [facility] [id number] [facility] 2024-04-23 14:30:00 2024-04-23 15:06:14 Outpatient R DAISY MO [facility] [id number] [facility] 2024-04-23 14:30:00 2024-04-23 15:06:14 Office Visit Daisy Mo [facility] DETECTIVE [facility] CHILD [facility] [id number] [id number] [facility] 2024-04-09 00:00:00 2024-04-09 10:36:37 Telephone Christine Castillo [facility] DETECTIVE [facility] CHILD [facility] [id number] [facility] 2024-04-06 10:15:00 2024-04-06 10:58:36 Outpatient R CHRISTINE CASTILLO [facility] [id number] [facility] 2024-04-06 10:15:00 2024-04-06 10:58:36 Office Visit Christine Castillo [facility] DETECTIVE [facility] & CHILD [facility] [id number] [facility] 2024-02-12 10:30:00 2024-02-12 10:30:00 Outpatient R GWENDOLYN CHAU [facility] [id number] [facility] 2023-12-18 10:30:00 2023-12-18 10:30:00 Outpatient R GWENDOLYN CHAU [facility] [id number] [facility] 2023-02-21 13:30:00 2023-02-21 13:30:00 Outpatient R VEE MADDOX [facility] [id number] [facility] 2022-02-21 12:30:00 2022-02-21 12:45:00 [facility] Pathology Associate Professor Visit Pob, Adc Lab Main Vee Maddox [facility] [id number] [id number] [id number] [id number] [facility] 2022-02-21 10:30:00 2022-02-21 11:44:48 Outpatient R VEE MADDOX [facility] [id number] [facility] 2022-02-21 10:30:00 2022-02-21 11:44:48 Office Visit Vee Maddox [facility] [id number] [id number] [id number] [id number] [facility] 2022-02-21 10:30:00 2022-02-21 11:44:48 Outpatient R VEE MADDOX [facility] [id number] [facility] 2022-02-21 00:00:00 2022-02-21 00:00:00 Orders Only Doctor Unassigned, Mcgregor [facility] [id number] [id number] [id number] [id number] [facility] 2022-01-03 15:00:00 2022-01-03 15:00:00 Outpatient R VEE MADDOX [facility] [id number] [facility] 2021-07-20 13:14:51 2021-07-20 14:02:31 [facility] [id number] [id number] [id number] [id number] [facility] 2021-07-20 13:00:00 2021-07-20 14:02:31 [id number] 2021-07-19 00:00:00 2021-07-19 00:00:00 Telephone [facility]ee [facility] [id number] [id number] [id number] 134 [id number] [facility] 2021-07-05 15:29:02 2021-07-05 16:33:27 Office Visit Vee Maddox [facility] [id number] [facility] 2021-07-05 15:15:00 2021-07-05 16:33:27 Outpatient R VEE MADDOX [facility] [id number] [facility] 2021-07-05 00:00:00 2021-07-05 00:00:00 Orders Only Doctor Unassigned, Mcgregor [facility] [id number] [facility] 2021-06-29 15:45:00 2021-06-29 16:26:34 Outpatient R VEE MADDOX [facility] [id number] [facility] 2021-06-29 15:42:12 2021-06-29 16:26:34 [facility]ine [facility]ee [facility] [id number] [facility] 2021-06-05 14:30:00 2021-06-05 14:47:51 Outpatient R VEE MADDOX [facility] [id number] [facility] 2021-05-28 20:08:00 2021-05-31 19:35:00 Inpatient X VEE MADDOX [facility] [id number] [facility] 2021-05-29 14:15:00 2021-05-29 14:15:00 Outpatient VEE SUGGS [facility] [id number] [facility] 2021-05-22 15:30:00 2021-05-22 16:52:36 Outpatient MADDIE SERNA [facility] [id number] [facility] 2021-05-17 13:45:00 2021-05-17 13:45:00 Outpatient MADDIE SERNA [facility] [id number] [facility] 2021-05-08 14:15:00 2021-05-08 15:16:58 Outpatient VEE SUGGS [facility] [id number] [facility] 2021-04-24 15:00:00 2021-04-24 15:25:59 Outpatient MADDIE SERNA [facility] [id number] [facility] 2021-04-10 14:00:00 2021-04-10 14:00:00 Outpatient MADDIE SERNA [facility] [id number] [facility] 2021-04-10 08:15:00 2021-04-10 09:57:24 Outpatient VEE SUGGS [facility] [id number] [facility] 2021-04-10 08:00:00 2021-04-10 08:00:00 Outpatient VEE SUGGS [facility] [id number] [facility] 2021-03-13 14:45:00 2021-03-13 15:31:51 Outpatient R MADDIE DURAN [facility] [id number] [facility] 2021-02-17 15:00:00 2021-02-17 15:41:30 Outpatient P MARY CLEMENTS [facility] [id number] [facility] 2021-02-09 16:15:00 2021-02-09 16:15:00 Outpatient R MADDIE DURAN [facility] [id number] [facility] 2021-02-09 13:30:00 2021-02-09 13:30:00 Outpatient R VEE MADDOX [facility] [id number] [facility] 2021-01-27 14:00:00 2021-01-27 14:00:00 Outpatient R [facility] [id number] [facility] 2021-01-10 09:30:00 2021-01-10 09:30:00 Outpatient R MADDIE DURAN [facility] [id number] [facility] 2020-12-20 14:00:00 2020-12-20 14:00:00 Outpatient R DAISY OM [facility] [id number] [facility] 2020-12-13 08:30:00 2020-12-13 09:39:17 Outpatient R VEE MADDOX [facility] [id number] [facility] 2020-12-06 11:15:00 2020-12-06 11:15:00 Outpatient P [facility] [id number] [facility] 2020-12-06 08:00:00 2020-12-06 08:00:00 Outpatient P [facility] [id number] [facility] 2020-11-22 15:15:00 2020-11-22 15:15:00 Outpatient R DAISY MO [facility] [id number] [facility] 2020-10-25 10:00:00 2020-10-25 10:00:00 Outpatient R DAISY MO [facility] [id number] [facility] 2020-02-18 00:00:00 2020-02-18 00:00:00 Orders Only Doctor Unassigned, Mcgregor [facility] [id number] Results Test Description Test Time Test Comments Results Result Co mments Source [facility] Notes Date/Time Note Provider Source 2024-04-27 16:50:52 Pt called and notified she verbalized understanding Please notify the patient her labs are indicative of BV, meds have been sent to her pharmacy on file. Please have her complete the entire course as prescribed. AALIYAH Alarcon 04/27/2024 4:52 PM [facility] 2024-04-09 10:35:24 Called patient, notified positive for BV. Educated patient on antibiotics, daily probiotics, and BV prevention measures. Pt verbalized understanding. ADRIENNE Mcadams RN 04/09/2024 10:35 AM Adrienne Mcadams RN [facility] 2024-04-09 09:32:32 Attempted to call patient, no answer, left vm. Barbara Holley LVN [facility] 2024-04-09 08:42:25 Please make pt aware that she is positive for BV. Rx for metronidazole 500mg BID x 7 days sent to pharmacy. Advise to avoid scented soaps/detergents/pads/tampons . RTC in 2 weeks if symptoms persist or worsen. 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 Other testing is negative. [facility]
--- NOTE | 2025-01-26 17:08 | EDPHYS ---
Physician Documentation [facility] Name: Nicol Perea Age: 19 yrs Sex: Female : 2005 Arrival Date: 01/26/2025 Time: 16:41 Bed IW5 Private MD: ED Physician Kyaw Wood HPI: 01/26 17:51 This 19 yrs old Black Female presents to ER via Ambulatory with complaints of ear kb pressure, Ear Pain. 17:51 Patient is a 19-year-old female who presents for fullness, pressure and decreased kb hearing to bilateral ears for 3 days. States she put peroxide in her ears and that she had some soreness afterwards. Denies fever, chills, cough, congestion, dizziness, headache.. 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 - Infectious Disease History:: Denies. - Social history:: Smoking status: Reported history of juuling and/or vaping. ROS: 17:47 Constitutional: As per HPI kb Exam: 17:47 Constitutional: This is a well developed, well nourished patient who is awake, alert, kb and in no acute distress. Head/Face: Normocephalic, atraumatic. Cardiovascular: Regular rate Respiratory: Respirations even and unlabored. No increased work of breathing. Talking in full sentences Skin: Warm, dry with normal turgor. Normal color. MS/ Extremity: Pulses equal, no cyanosis. Neurovascular intact. Full, normal range of motion. Neuro: Awake and alert, GCS 15, oriented to person, place, time, and situation. 17:47 ENT: External ear(s): are unremarkable, Ear canal(s): cerumen impaction, that is moderate, bilaterally, Vital Signs: 17:42 BP 125 / 93; Pulse 74; Resp 18; Temp 98.5; Pulse Ox 100% ; Weight 58.97 kg; Height 5 me1 ft. 1 in. ; Pain 4/10; 17:42 Body Mass Index 24.56 (58.97 kg, 154.94 cm) me1 17:42 Pain Scale: Adult me1 MDM: 16:47 Medical Screening Exam initiated kb 17:47 Differential diagnosis: otitis media, otitis externa, acute otalgia, cerumen impaction. kb Data reviewed: vital signs, nurses notes. Counseling: I had a detailed discussion with the patient and/or guardian regarding the historical points, exam findings, and any diagnostic results supporting the discharge/admit diagnosis, the need for outpatient follow up, an ENT specialist, to return to the emergency department if symptoms worsen or persist or if there are any questions or concerns that arise at home. Administered Medications: No medications were administered Disposition Summary: 01/26/25 17:07 Discharge Ordered Notes: Location: Home kb Condition: Stable kb Diagnosis - Impacted cerumen, bilateral kb Followup: kb - With: Emergency Department - When: As needed - Reason: Worsening of condition Followup: kb - With: Private Physician - When: 2 - 3 days - Reason: Recheck today's complaints, Continuance of care, Re-evaluation by your physician Discharge Instructions: - Discharge Summary Sheet kb - Earwax Buildup, Adult kb Forms: - Medication Reconciliation Form kb - Antibiotic Education kb - Prescription Opioid Use kb - Patient Portal Instructions kb - Leadership Thank You Letter kb Addendum: 01/27/2025 20:20 I was immediately available for consultation during this patient's visit. I did not e c2 personally see the patient or discuss the patient with the LEONARDO. . Signatures: Tessy Kessler, SLABBER-C SLABBER-Sandy Celestin RN RN me1 Kyaw Wood MD MD 2
--- NOTE | 2025-01-26 17:48 | ER ---
Nurse's Notes [facility] Name: Nicol Perea Age: 19 yrs Sex: Female : 2005 Arrival Date: 01/26/2025 Time: 16:41 Bed IW5 Private MD: Diagnosis: Impacted cerumen, bilateral Presentation: 01/26 17:42 Chief complaint: Patient states: bilateral ear pain and sinus congestion. Coronavirus me1 screen: Vaccine status: Patient reports being unvaccinated. Ebola Screen: No symptoms or risks identified at this time. Initial Sepsis Screen: Does the patient meet any 2 criteria? No. Patient's initial sepsis screen is negative. Does the patient have a suspected source of infection? No. Patient's initial sepsis screen is negative. Risk Assessment: Do you want to hurt yourself or someone else? Patient reports no desire to harm self or others. Onset of symptoms was January 24, 2025. 17:42 Method Of Arrival: Ambulatory [facility] 17:42 Acuity: LILIANE 4 me1 Triage Assessment: 17:45 General: Appears in no apparent distress. Behavior is calm, cooperative, appropriate me1 for age. Pain: Complains of pain in right ear and left ear Pain does not radiate. Pain currently is 4 out of 10 on a pain scale. Quality of pain is described as aching, Pain began gradually, Is continuous. EENT: Reports nasal congestion pain in left ear and right ear. Neuro: Level of Consciousness is awake, alert, obeys commands, Oriented to person, place, time, situation, Appropriate for age. Cardiovascular: Patient's skin is warm and dry. Respiratory: Airway is patent Trachea midline Respiratory effort is even, unlabored, Respiratory pattern is regular, symmetrical. GI: No signs and/or symptoms were reported involving the gastrointestinal system. : No signs and/or symptoms were reported regarding the genitourinary system. Derm: Skin is intact, is healthy with good turgor, Skin is pink, warm \T\ dry. Musculoskeletal: No signs and/or symptoms reported regarding the musculoskeletal system. 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 - Infectious Disease History:: Denies. - Social history:: Smoking status: Reported history of juuling and/or vaping. Screenin:46 [facility] ED Fall Risk Assessment (Adult) History of falling in the last 3 months, me1 including since admission No falls in past 3 months (0 pts) Confusion or Disorientation No (0 pts) Intoxicated or Sedated No (0 pts) Impaired Gait No (0 pts) Mobility Assist Device Used No (0 pt) Altered Elimination No (0 pt) Score/Fall Risk Level 0 - 2 = Low Risk Maintained a safe environment, Provided non-skid footwear, Hourly rounding (assess needs \T\ fall precautionary measures) done. Abuse screen: Denies threats or abuse. Nutritional screening: No deficits noted. Tuberculosis screening: No symptoms or risk factors identified. Assessment: 17:46 General: See triage assessment. me1 Vital Signs: 17:42 BP 125 / 93; Pulse 74; Resp 18; Temp 98.5; Pulse Ox 100% ; Weight 58.97 kg; Height 5 me1 ft. 1 in. ; Pain 4/10; 17:42 Body Mass Index 24.56 (58.97 kg, 154.94 cm) me1 17:42 Pain Scale: Adult me1 ED Course: 16:44 Patient arrived in ED. im 16:47 Tessy Kessler FNP-C [facility] kb 16:47 Kyaw Wood MD is Attending Physician. kb 17:43 Triage completed. me1 17:43 Arm band placed on Patient placed in waiting room. me1 17:46 Patient has correct armband on for positive identification. Provided Education on: POC. me1 Verbalized understanding.. 17:46 No provider procedures requiring assistance completed. Patient did not have IV access me1 during this emergency room visit. Administered Medications: No medications were administered Medication: 17:46 VIS not applicable for this client. me1 Outcome: 17:07 Discharge ordered by . kb 17:48 Discharged to home ambulatory, me1 17:48 Condition: stable 17:48 Discharge instructions given to patient, Instructed on discharge instructions, follow up and referral plans. Demonstrated understanding of instructions, follow-up care, 17:48 Patient left the ED. me1 Signatures: Tessy Kessler FNP-C FNP-Ckb Mendoza, Anaid im Eddleman, Sandy, RN RN me1
[2025-01-26 18:25] VITALS: BP 125/93; TEMP 98.5; O2SAT 100
== END 2025-01-26 17:48 | disposition home or self-care (01) ==
LOC: ER 16:41
DX: H61.23 Impacted cerumen, bilateral (principal)
CPT/HCPCS: 99282